=== PATIENT | male | born 1985 | race Caucasian/White ===

== ENCOUNTER 2018-05-29 09:34 | Day surgery (SDC) | payer OTHER, SELFPAY ==
[2018-05-26 09:57] VITALS: BMI 31.7
[2018-05-29] VITALS (11 sets, daily range): BP systolic 107–149; BP diastolic 43–91; PULSE 90–108; RESP 12–17; TEMP 36.1–36.8; O2SAT 93–100; BMI 31.6
--- NOTE | 2018-05-29 10:29 | SUR.PREOP ---
pt report has chronic numbness and tingling in left leg.
--- NOTE | 2018-05-29 11:16 | PM.PREOP ---
Pre-operative Note Interval Note History & Physical reviewed/Exam performed by Physician: Yes Changes to H&P: No
--- NOTE | 2018-05-29 11:35 | SUR.OPER ---
Prone on spine table, head in foam head support, padded chest and pelvic supports, gel pad at knees, lower legs supported by pillows; nipples, genitalia and toes free of pressure, arms secured on foam padded arm boards at <90 degrees abduction. Tape over blanket at thigh secured to table.
[2018-05-29] MEDS: LACTATED RINGERS 1,000 ML 42 ML IV (11:43)
--- NOTE | 2018-05-29 11:44 | SUR.PREOP ---
1144, pt. very difficult IV start, used vein finder to gain access to vein. pt.. tolerated well.
[2018-05-29] MEDS: CEFAZOLIN 2 GM/100 ML FROZ.PIGGY IV (12:05)
[2018-05-29] MEDS: SODIUM CHLORIDE 0.9% 1,000 ML, GENTAMICIN 80 MG IRR (12:40)
[2018-05-29] MEDS: BUPIVACAINE 0.25% (PF) 8 ML, fentaNYL 100 MCG INJ (12:44)
--- NOTE | 2018-05-29 13:17 | P.OP_ITS ---
Operative Date/Time/Diagnoses Date of procedure: 05/29/18 Time of procedure: 13:15 Pre-op diagnosis: L5-S1 disc herniation with radiculopathy Post-op diagnosis: same Procedure & Clinicians Procedure: Left-sided L5-S1 diskectomy Use of microscope Placement of epidural catheter Same procedure as scheduled: Yes Indications: [age] year old male with intractable pain from a lumbar disc herniation. They had failed conservative management and requested operative intervention. Risks and benefits of surgery were discussed and appropriate c onsents were obtained. Surgeon: Sumeet Thomas [employer] Merchandising Manager: Keyanna Medeiros Anesthesia Type: General Operative Notes Findings: None Closure Type: primary Specimen(s): none sent Estimated Blood Loss (mL): 10 Procedure in detail: Patient was brought to the operating room and intubated on the table. A time-out was performed. There were rolled over the well-padded prone position on the Manuel table. The back was prepped and draped in standard sterile fashion. Preoperative antibiotics were given. Using fluoroscopy, a 3 cm incision was made to the left of the midline at the L5-S1 level. We used Bovie to come down to and split the fascia. We then used the [employer] MaXcess dilators with fluoroscopy and then opened our retractors. The soft tissue was cleared off with Bovie, a marker was placed, an x-ray was taken to confirm positioning. We then brought in the microscope. A combination of high-speed bur and Kerrison were used to perform a left-sided hemilaminotomy and hemifacetectomy. We carefully retracted the dura and expose the disc. This was cleared with bipolar. A scalpel used to perform an annulotomy and a pituitary was used to perform the diskectomy. The ball probe was swept underneath the dura along the disc to make sure there were no further loose fragments. This was also placed into the disc and moved around to make sure there were no further loose fragments. Once everything was adequately decompressed, the wound was copiously irrigated. An epidural catheter was filled with 100 mcg of fentanyl and 8 mL of 0.25% Marcaine. The dura was carefully depressed under the laminotomy site and the catheter was advanced 6 cm cephalad. The retractor was removed and the fascia was closed. The epidural catheter was then injected without resistance and removed. Vancomycin powder was placed in the wound. Superficial and skin were closed. Sterile dressing was placed. The patient was then rolled over, transf erred to the stretcher, and brought to recovery room without complications. Complications: none Condition: stable Disposition: PACU Plan for aftercare: Outpatient. Start PT in 2 weeks.
[2018-05-29] MEDS: VANCOMYCIN 1,000 MG VIAL 1000 MG TOP (13:19)
--- NOTE | 2018-05-29 14:00 | DI.RAD.S_ITS ---
PROCEDURE: XR LUMBAR SPINE 2-3V INDICATIONS: L5-S1 MICRODISCECTOMY TECHNIQUE: 2 views of the lumbar spine were acquired. COMPARISON: None. FINDINGS: Bones: Digital acquisition imaging in preparation for microdiscectomy L5-S1 level. Port accesses documented dorsal to the posterior elements of L5-S1. Poor angled approach appears left-sided. Soft tissues: Overlying bowel gas pattern is normal. No suspicious soft tissue calcifications. IMPRESSION: Left sided L5-S1 port access approach for microdiscectomy. Dictated by: oJon Yeh M.D. on 06/01/2018 at 14:57 Approved by: Joon Yeh M.D. on 06/01/2018 at 14:58
[2018-05-29] MEDS: fentaNYL 100 MCG/2 ML INJ 50 MCG IV ×2 (14:06→14:12)
[2018-05-29] MEDS: OXYCODONE/ACETAMINOPHEN 5/325 TABLET 1 TAB PO (14:43)
== END 2018-05-29 15:18 | disposition home or self-care (01) ==
PROVIDERS: Visit Provider Orthopaedic Surgery
PROC: (CPT 63030; principal; 2018-05-29 12:15)
DX: M51.16 Intervertebral disc disorders with radiculopathy, lumbar region (principal); S39.012A Strain of muscle, fascia and tendon of lower back, initial encounter; X50.0XXA Overexertion from strenuous movement or load, initial encounter; Z72.0 Tobacco use
CPT/HCPCS: 63030; 72100; 76000; J0690; J1100; J2250; J2405; J2704; J3010

== ENCOUNTER → 2018-08-03 06:24 | Outpatient (CLI) | payer OTHER, SELFPAY ==
--- NOTE | 2018-08-03 | DI.MRI.S_ITS ---
PROCEDURE: MR LUMBAR SPINE WO/W CON INDICATIONS: Intervertebral disc disorders with radiculopathy TECHNIQUE: Noncontrast sagittal T1 spin echo and T2 fast spin echo, sagittal STIR, axial T1 and T2 fast spin echo through the lumbar spine. In cases with scoliosis, additional coronal T2 fast spin echo may be performed. After the administration of contrast, sagittal and axial T1 spin echo with fat saturation through the lumbar spine. COMPARISON: [facility], CR, XR LUMBAR SPINE 2-3V, 05/29/2018, 12:32. FINDINGS: Image quality: Limited by patient motion artifact. Alignment and curvature: There is normal bony alignment. Bones: Postsurgical changes compatible with prior left L5-S1 laminotomy noted. Benign, intraosseous hemangioma noted in the L3 vertebral body. Mild reactive endplate changes noted adjacent the L5-S1 disc. No acute vertebral body compression fractures. No suspicious marrow enhancement. Spinal cord: Conus medullaris terminates at the L1 level. Visualized spinal cord demonstrates normal signal, without suspicious enhancement. Paraspinous soft tissues: No paravertebral masses or abnormal enhancement. L1-L2: Normal appearance. L2-L3: Normal appearance. L3-L4: Normal appearance. L4-L5: Loss of the signal. Mild, diffuse disc bulge. Mild bilateral facet hypertrophy. Moderate narrowing of the central canal. Mild bilateral neural foraminal narrowing. No neural impingement. Focal intensities are noted in the posterior annulus compatible with the fissure. L5-S1: Loss of disc signal and slight loss of disc height. Mild diffuse disc bulge. Large left central disc extrusion. Extruded disc material impinges upon the traversing nerve roots of the cauda equina. Severe narrowing of the central canal secondary to extruded disc material. Mild bilateral facet hypertrophy. Mild right and mild to moderate left neural foraminal narrowing. IMPRESSION: 1. Postsurgical changes. 2. L4-L5 and L5-S1 degenerative disc disease. 3. L4-L5 and L5-S1 facet arthropathy. 4. Large left central L5-S1 disc extrusion. Extruded disc material impinges upon the traversing nerve roots of the cauda equina and compresses the traversing left S1 nerve root. 5. Severe L5-S1 central canal narrowing. Moderate L4-L5 central canal narrowing. 6. Mild right and mild/moderate left L5-S1 neural foraminal narrowing. Mild bilateral L4-L5 neural foraminal narrowing. 7. L4-L5 disc annulus fissure. Dictated by: Ynes Meadows MD, PhD on 08/03/2018 at 9:04 Approved by: Ynes Meadows MD, PhD on 08/03/2018 at 9:10
== END ==
PROVIDERS: Visit Provider Orthopaedic Surgery
DX: M51.16 Intervertebral disc disorders with radiculopathy, lumbar region (principal); M51.17 Intervertebral disc disorders with radiculopathy, lumbosacral region; M47.26 Other spondylosis with radiculopathy, lumbar region; M47.27 Other spondylosis with radiculopathy, lumbosacral region; M48.061 Spinal stenosis, lumbar region without neurogenic claudication; M48.07 Spinal stenosis, lumbosacral region
CPT/HCPCS: 72158

== ENCOUNTER → 2018-09-10 15:35 | Outpatient (CLI) | payer OTHER, SELFPAY ==
[2018-09-10 17:37] LABS: Add Manual Diff / Slide Review NO; Basophils Absolute Auto 100 /uL (0-100); Basophils Percent Auto 0.7 % (0-2); Eosinophils Absolute Auto 200 /uL (0-450); Eosinophils Percent Auto 2.5 % (2-4); Hematocrit 47.8 % (41-53); Hemoglobin 16.3 g/dL (13.5-17.5); Lymphocytes Absolute Auto 2900 /uL (1100-4500); Lymphocytes Percent Auto 36.3 % (25-40); Mean Corpuscular HGB Conc 34.2 % (30-36); Mean Corpuscular Hemoglobin 31.7 PG (26-34); Mean Corpuscular Volume 92.9 fL (80-100); Monocytes Absolute Auto 600 /uL (0-900); Monocytes Percent Auto 7.9 % (3-14); Neutrophils Absolute Auto 4200 /uL (1500-7000); Neutrophils Percent Auto 52.6 % (50-75); Platelet Count 201 X10^3/uL (150-400); Red Blood Cell Count 5.14 X10^6/uL (4.5-5.9); Red Cell Distribution Width 12.5 % (11.6-14.8)
== END ==
PROVIDERS: Visit Provider Physician Assistant Surgical
DX: M51.16 Intervertebral disc disorders with radiculopathy, lumbar region (principal); S39.012D Strain of muscle, fascia and tendon of lower back, subsequent encounter; Z01.818 Encounter for other preprocedural examination
CPT/HCPCS: 36415; 85025

== ENCOUNTER 2018-09-22 06:07 | Day surgery (SDC) | payer OTHER, SELFPAY ==
[2018-08-11 15:19] VITALS: BMI 32.2
[2018-09-22] VITALS (7 sets, daily range): BP systolic 100–143; BP diastolic 47–93; PULSE 91–112; RESP 10–22; TEMP 36.2–36.7; O2SAT 93–97; BMI 31.9
--- NOTE | 2018-09-22 | DI.RAD.S_ITS ---
PROCEDURE: XR LUMBAR SPINE 2-3V INDICATIONS: L5-S1 LAMI TECHNIQUE: 2 views of the lumbar spine were acquired. COMPARISON: [facility], CR, XR LUMBAR SPINE 2-3V, 05/29/2018, 12:32. FINDINGS: Intraoperative images demonstrate surgical probe project over the posterior elements on the left localizing the L5-S1 disc interspace. IMPRESSION: Fluoroscopic images demonstrating surgical probe over the posterior elements at the L5-S1 level. Dictated by: Jeffry BARON Interpreted: Joon Yeh MD on 09/22/2018 at 9:41 Approved by: Joon Yeh M.D. on 09/22/2018 at 12:14
[2018-09-22] MEDS: LACTATED RINGERS 1,000 ML 42 ML IV ×2 (07:23→08:36)
--- NOTE | 2018-09-22 07:26 | PM.PREOP ---
Pre-operative Note Interval Note History & Physical reviewed/Exam performed by Physician: Yes Changes to H&P: No
--- NOTE | 2018-09-22 07:29 | P.OP_ITS ---
Operative Date/Time/Diagnoses Date of procedure: 09/22/18 Time of procedure: 09:50 Pre-op diagnosis: Recurrent lumbar disc herniation with radiculopathy Post-op diagnosis: same Procedure & Clinicians Procedure: Revision left L5-S1 diskectomy Use of microscope Placement of epidural catheter Same procedure as scheduled: Yes Indications: [age] year old male with intractable pain from recurrent large disc herniation. They had failed conservative management and requested operative intervention. Risks and benefits of surgery were discussed and appropriate consents were obtained. Surgeon: Sumeet Thmoas Electrical Controls Designer: Lien Adhikari Anesthesia Type: General Operative Notes Findings: None Closure Type: primary Specimen(s): none sent Estimated Blood Loss (mL): 15 Procedure in detail: Patient was brought to the operating room and intubated on the table. A time-out was performed. There were rolled over the well-padded prone position on the Manuel table. The back was prepped and draped in standard sterile fashion. Preoperative antibiotics were given. Using fluoroscopy, a 3 cm incision was made to the well-marked left of the midline at the L5-S1 level utilizing his previous scar. We used Bovie to come down to and split the fascia. We then used the [employer] MaXcess dilators with fluoroscopy and then opened our retractors. The soft tissue and scar was cleared off with Bovie from lateral to medial until we came to his previous laminotomy, a marker was placed, an x-ray was taken to confirm positioning. We then brought in the microscope. A combination of high-speed bur and Kerrison were used to perform a revision left-sided hemilaminotomy and hemifacetectomy. We only took approximately 1 extra mm of bone from his previous laminotomy. We then had to do extensive dissection to try to isolate the dura. We finally visualized and freed up the traversing nerve root. We then worked underneath it and around it to remove more of the scar tissue until week ago well down past the level of the disc and up proximally to our laminotomy. We then worked underneath with the right angle ball probe and swept back and forth. This was densely adherent to the disc space but we were finally able to free up the nerve root and worked medially until a retractor was passed the midline. The did not appear to be much of the herniated disc above the level of the disc but there was still a moderate portion at the level of the disc. An annulotomy was performed and a pituitary was used to remove the disc fragments. However this was still hung up distally. We kept working and found a large extruded fragment that had worked mostly distally. This was removed with the pituitary. It was approximately 8 by 22 mm in size. We then were able to sweep the ball probe back and forth and there was no further tension on the nerve root and no more pressure from the disc tissue. There were no fragments in the disc space itself. Once everything was adequately decompressed, the wound was copiously irrigated. An epidural catheter was filled with 100 mcg of fentanyl and 8 mL of 0.25% Marcaine. The dura was carefully depressed under the laminotomy site and the catheter was advanced 6 cm cephalad. We then placed 40 mg of Depo-Medrol on top of the irritated root as this had been extensively manipulated and retracted throughout the surgery while trying to free it up from the scar tissue. The retractor was removed and the fascia was closed. The epidural catheter was then injected without resistance and removed. Vancomycin powder was placed in the wound. Superficial and skin were closed. Sterile dressing was placed. The patient was then rolled over, transferred to the stretcher, and brought to recovery room without complications. Complications: none Condition: stable Disposition: PACU Plan for aftercare: Outpatient. Begin PT in 2 weeks.
[2018-09-22] MEDS: MIDAZOLAM 2 MG/2 ML VIAL IV (07:34)
[2018-09-22] MEDS: CEFAZOLIN 2 GM/100 ML FROZ.PIGGY IV (08:06)
[2018-09-22] MEDS: SODIUM CHLORIDE 0.9% 1,000 ML, GENTAMICIN 80 MG IRR (08:39)
[2018-09-22] MEDS: methylPREDNISolone acet DEPO 40 MG/ML VIAL IM (09:23)
[2018-09-22] MEDS: BUPIVACAINE 0.25% (PF) 8 ML, fentaNYL 100 MCG INJ (09:47)
[2018-09-22] MEDS: fentaNYL 100 MCG/2 ML INJ 50 MCG IV (10:34)
[2018-09-22] MEDS: OXYCODONE/ACETAMINOPHEN 5/325 TABLET 1 TAB PO ×2 (10:34→11:01)
--- NOTE | 2018-09-22 10:38 | SUR.PHASEI ---
1034 Tolerating pain level well, rx given in anticipation of increasing pain and travel home. Denies anything more to improve comfort level. Skin warm and dry, Resp even and regular. Turns freely, positive strength, discussed log rolling. tolerating PO well.
--- NOTE | 2018-09-22 11:02 | SUR.PHASEI ---
1100 Report to Salome Yadav RN. Patient calm, VSS, states that he's is tolerating his pain level; Good strength and motion in extremities. No nausea.
--- NOTE | 2018-09-22 12:44 | SUR.PHASEII ---
Called and relayed information for future surgeries -- he was a difficult intubation and that they used the glidescope. Told her that it would be good information to pass along to future anesthesiologists. States that Dominik reported that his throat was more sore than with the previous surgery. Suggested ice chips and throat lozenges. Ela appreciated the information.
== END 2018-09-22 11:20 | disposition home or self-care (01) ==
PROVIDERS: PCP Family Medicine; Visit Provider Orthopaedic Surgery
PROC: (CPT 63042; principal; 2018-09-22 07:45)
DX: M51.16 Intervertebral disc disorders with radiculopathy, lumbar region (principal); S39.012A Strain of muscle, fascia and tendon of lower back, initial encounter
CPT/HCPCS: 63042; 72100; 76000; J0330; J0690; J1030; J1100; J2250; J2405; J2704; J3010

== ENCOUNTER → 2019-01-05 12:37 | Outpatient (CLI) | payer OTHER, SELFPAY ==
--- NOTE | 2019-01-05 | DI.MRI.S_ITS ---
PROCEDURE: MR LUMBAR SPINE WO/W CON INDICATIONS: Intervertebral disc disorders with radiculopathy, TECHNIQUE: Noncontrast sagittal T1 spin echo and T2 fast spin echo, sagittal STIR, axial T1 and T2 fast spin echo through the lumbar spine. In cases with scoliosis, additional coronal T2 fast spin echo may be performed. After the administration of contrast, sagittal and axial T1 spin echo with fat saturation through the lumbar spine. COMPARISON: [facility], CR, XR LUMBAR SPINE 2-3V, 09/22/2018, 8:31. [facility], CR, XR LUMBAR SPINE 2-3V, 05/29/2018, 12:32. [facility], MR, MR LUMBAR SPINE WO/W CON, 08/03/2018, 6:43. FINDINGS: Image quality: Excellent. Alignment and curvature: There is normal bony alignment. Marrow: Marrow is of normal overall signal. Scattered foci are seen, which are hyperintense on T1-weighted and T2-weighted imaging, which are most consistent with benign vertebral body hemangiomas. The most prominent of these can be seen within the posterior right L3 level. No acute vertebral body compression fractures. No suspicious marrow enhancement. Spinal cord: Conus medullaris terminates at the L1 level. Visualized spinal cord demonstrates normal signal, without suspicious enhancement. Paraspinous soft tissues: No paravertebral masses or abnormal enhancement. Expected amount of enhancement can be seen within the postoperative bed along the left aspect of L5-S1. T12-L1: Normal appearance. L1-L2: Normal appearance. L2-L3: No significant abnormality is seen. L3-L4: The disc height and disk signal are well-preserved. Mild to moderate disc bulge is seen. [id number] bilateral neural foraminal narrowing can be seen. Mild generalized disc bulge is seen. [id number] neural foraminal narrowing can be seen. When comparison is made with the prior examination, these findings are similar. L4-L5: The disc height is well-preserved. Loss of disc signal is seen at this level. Moderate disc bulge is seen, with a central disc protrusion. There is associated annular fissure seen posteriorly. Moderate bilateral neural foraminal narrowing is seen, right worse than left. Mild to moderate central canal narrowing is seen. When comparison is made with the prior examination, these findings are similar. L5-S1: Interval postoperative change is seen, with left hemilaminectomy. An expected amount of edema and enhancement can be seen within the postoperative bed. There is a left paracentral disc extrusion, with associated mass effect, particularly upon the transiting left L1 nerve root. Moderate central canal narrowing is seen. There is mild to moderate right-sided and moderate left-sided neural foraminal narrowing seen. The disc extrusion is improved compared to the prior examination. IMPRESSION: L5-S1 postoperative change, with improvement in the disc extrusion. A moderate disc extrusion remains, however, with associated mass effect upon the transiting left L5 nerve root. Dictated by: Pierre Hartman M.D. on 01/05/2019 at 13:42 Approved by: Pierre Hartman M.D. on 01/05/2019 at 13:50
== END ==
PROVIDERS: PCP Family Medicine; Visit Provider Orthopaedic Surgery
DX: M51.16 Intervertebral disc disorders with radiculopathy, lumbar region (principal); M51.17 Intervertebral disc disorders with radiculopathy, lumbosacral region
CPT/HCPCS: 72158

== ENCOUNTER 2019-02-11 00:14 | Emergency (ER) | payer OTHER, SELFPAY ==
[2019-02-11 00:24] VITALS: BP 135/80; PULSE 85; RESP 16; TEMP 36.6; O2SAT 100; BMI 31.0
--- NOTE | 2019-02-11 00:42 | PC.NURSE ---
Pt states that for approx 1 year when he is lying down he hears crackles. Pt denies pain or SOB,no swelling in lower extremities.
--- NOTE | 2019-02-11 01:06 | ED_ITS ---
HPI - SOB/Dyspnea General Chief Complaint: Shortness of Breath/Dyspnea Stated Complaint: crackling when I breath Time Seen by Provider: 02/11/19 00:50 Source: patient Mode of arrival: Family Vehicle Limitations: no limitations History of Present Illness HPI Narrative: The patient is a 33-year-old male who presents with loud breathing. He says that every time he lays down or reclines for a year he feels like he has crackles in his lungs. Tonight he felt like it was very loud. He denies any significant shortness of breath with exertion no chest pain no lower extremity edema. He says that he has an albuterol inhaler he uses it daily minute does not help with his breathing. He says he only notices it on inspiration not expiration. He denies any fever productive cough. He had no problems earlier in the day. He just noticed that was significantly louder at home tonight he went on the Internet decided to come to the ED for evaluation. He says now that he is here he no longer hears his breathing. Exacerbating factors: lying flat and inspiration Related Data Previous Rx's Medication Instructions Recorded hydroxyzine pamoate [Vistaril] 25 mg PO Q4HR PRN #10 cap 09/22/18 oxycodone-acetaminophen [Percocet] See Rx Instructions .ROUTE 09/22/18 .COMPLEX PRN #20 tab Allergies Allergy/AdvReac Type Severity Reaction Status Date / Time No Known Drug Allergies Allergy Verified 09/22/18 07:36 Review of Systems Review of Systems Narrative: GENERAL: Denies chills, fatigue, malaise, fever, sweats, travel HEENT: Denies sinus pain, ear pain, sore throat, difficulty swallowing, neck pain RESPIRATORY: See HPI CARDIOVASCULAR: Denies chest pain, palpitations, orthopnea, edema GASTROINTESTINAL: Denies nausea, vomiting, abdominal pain, diarrhea, constipation, melena. : Denies dysuria, frequency, incontinence, hematuria, urinary retention, flank pain. MUSCULOSKELETAL: Denies weakness, joint pain, or bony pain SKIN: No rash, no erythema, no pruritus NEUROLOGIC: Denies weakness, dizziness, headache, numbness, change in speech, confusion PSYCHIATRIC: No concerning psychosocial issues. 12 point review of systems is negative except for those stated above and HPI Patient History Medical History Back pain (Acute) Surgical History Hx of tonsillectomy (Acute) Social History household members: spouse Smoking Status: Former smoker alcohol intake: current Substance Use Type: does not use Exam Initial Vital Signs Initial Vital Signs: Vital Signs Temperature 97.8 F 02/11/19 00:24 Pulse Rate 85 02/11/19 00:24 Respiratory Rate 16 02/11/19 00:24 Blood Pressure 135/80 02/11/19 00:24 Pulse Oximetry 100 02/11/19 00:24 GENERAL: Well-appearing, well-nourished and in no acute distress. HEENT: Head atraumatic,EOMI, pupils reactive, face symmetric, moist mucous membranes CARDIOVASCULAR: Regular rate and rhythm without murmurs, rubs or gallops. RESPIRATORY: Breath sounds equal bilaterally, no wheezes rales or rhonchi. ABDOMEN: Soft, nontender. Normoactive bowel sounds all 4 quadrants. No guar ding or rebound. EXTREMITIES: Normal range of motion, no clubbing or edema. Neurovascularly intact NEUROLOGICAL: Alert and oriented x4.Normal gait and speech. Cranial nerves II through XII grossly intact. SKIN: Warm, dry, no laceration, no petechiae, no rashes or lesions. Course Orders Ordered: ED Orders 02/11/19 01:22 XR chest 2V Stat Vital Signs Vital signs: Vital Signs - 8 hr 02/11/19 00:24 02/11/19 01:53 Temperature 97.8 F Pulse Rate 85 86 Respiratory Rate 16 16 Blood Pressure 135/80 134/80 Pulse Oximetry 100 98 MDM - SOB/Dyspnea Imaging Data Chest x-ray: Attestation: I personally reviewed and interpreted this imaging study as follows: My impression: No acute cardiopulmonary process MDM Narrative Medical decision making narrative: Patient's lungs are clear he is in no respiratory distress. X-ray is clear. This has been ongoing for about a year. I do recommend outpatient testing and follow-up. Including echocardiogram an official testing for asthma. I did offer blood work today for patient however he declined. His symptoms have completely resolved now that he is in the ED. I have considered several life threatening etiologies for the patients loud breathing such as asthma, COPD, CHF. I discussed all findings with the patient, Education has been performed regarding treatment plan, diagnosis, warning signs and symptoms and all concerns have been addressed. Verbally agree with and understood all of the above. Discharge Plan Departure Patient Disposition: Home Clinical Impression: Asthma Qualifiers: Asthma severity: moderate Asthma persistence: persistent Asthma complication type: uncomplicated Qualified Code(s): J45.40 - Moderate persistent asthma, uncomplicated Discharge Date/Time: 02/11/19 01:53 Instructions: DI for Asthma -- Adult Activity Restrictions/Additional Instructions: *You have been diagnosed with asthma *What to do: I do recommend that you have official asthma testing. All along with evaluation of your heart and possible echocardiogram. Both of these can be done with your PCP *Continue to take medications as directed Albuterol inhaler 1-2 puffs only if needed for shortness of breath or wheezing *Follow up with your primary care provider in 2-3 days *Return to ER if you should have increasing shortness of breath, difficulty breathing, chest pain or any new, worsening or concerning symptoms Prescriptions: No Action oxycodone-acetaminophen [Percocet] 5-325 mg tablet See Rx Instructions .ROUTE .COMPLEX PRN (Reason: pain) Qty: 20 RF: 0 hydroxyzine pamoate [Vistaril] 25 mg capsule 25 mg PO Q4HR PRN (Reason: spasms) Qty: 10 RF: 0 Referrals: [facility] [Provider Group] Milena Catalan MD [Primary Care Provider] -
--- NOTE | 2019-02-11 01:22 | DI.RAD.S_ITS ---
PROCEDURE: XR CHEST 2V INDICATIONS: shortness of breath, crackle when breathing while laying down TECHNIQUE: 2 views of the chest were acquired. COMPARISON: None. FINDINGS: Surgical changes and devices: None. Lungs and pleura: Lungs are clear. No pleural effusions or pneumothorax. Mediastinum: Mediastinal contours are normal. Heart size is normal. Bones and chest wall: No suspicious bony abnormalities. Soft tissues appear unremarkable. IMPRESSION: No evidence acute pulmonary process. Dictated by: Don Borges M.D. on 02/11/2019 at 8:28 Approved by: Don Borges M.D. on 02/11/2019 at 8:28
[2019-02-11 01:53] VITALS: BP 134/80; PULSE 86; RESP 16; O2SAT 98
== END 2019-02-11 01:53 | disposition home or self-care (01) ==
PROVIDERS: Emergency Provider Emergency Medicine; PCP Family Medicine
DX: J45.40 Moderate persistent asthma, uncomplicated (principal)
CPT/HCPCS: 71046; 99283

== ENCOUNTER → 2019-08-03 15:51 | Outpatient (CLI) | payer OTHER, SELFPAY ==
[2019-08-04 03:10] LABS: COVID19 Sendout Not Detected (Not Detect)
== END ==
PROVIDERS: PCP Family Medicine; Visit Provider Registered Nurse
DX: Z11.59 Encounter for screening for other viral diseases (principal)
CPT/HCPCS: 87635

== ENCOUNTER → 2019-12-21 15:15 | Outpatient (CLI) | payer OTHER, SELFPAY ==
[2019-12-21 16:01] LABS: C-Reactive Protein Quant < 0.5 mg/dL (<1.0)
[2019-12-21 16:06] LABS: Erythrocyte Sedimentation Rate 1 MM/HR (0-15)
[2019-12-21 16:27] LABS: TSH w/ Reflex to FT4 2.35 uIU/mL (0.47-4.68)
[2019-12-22 17:21] LABS: Tissue Transglutaminase IgA <2 U/mL (0-3); Tissue Transglutaminase IgG 44 U/mL (0-5)
== END ==
PROVIDERS: PCP Family Medicine; Referring Provider Family Medicine; Visit Provider Family Medicine
DX: K52.9 Noninfective gastroenteritis and colitis, unspecified (principal)
CPT/HCPCS: 36415; 83516; 84443; 85651; 86140

== ENCOUNTER 2020-07-07 13:50 | Emergency (ER) | payer OTHER, SELFPAY ==
[2020-07-07 14:06] VITALS: BP 131/76; PULSE 83; RESP 12; TEMP 36.9; O2SAT 99; BMI 30.3
--- NOTE | 2020-07-07 15:52 | DI.RAD.S_ITS ---
PROCEDURE: XR LUMBAR SPINE 2-3V INDICATIONS: R lumbar pain, no trauma, hx of herniated disc TECHNIQUE: 3 views of the lumbar spine were acquired. COMPARISON: [facility], CR, XR LUMBAR SPINE 2 OR 3 VIEWS, 04/16/2018, 15:04. [facility], CR, XR LUMBAR SPINE 2-3V, 05/29/2018, 12:32. [facility], CR, XR LUMBAR SPINE 2 OR 3 VIEWS, 07/04/2020, 11:17. [facility], CR, XR LUMBAR SPINE 2-3V, 09/22/2018, 8:31. FINDINGS: Bones: No fracture. Straightening of the normal lordotic curvature. Multilevel degenerative endplate sclerosis and spurring. Diffuse facet arthropathy. Moderate narrowing of the L5-S1 disc space. Mild narrowing of the L4-L5 disc space. This is unchanged since 07/04/20 Soft tissues: Overlying bowel gas pattern is normal. No suspicious soft tissue calcifications. IMPRESSION: Mild lower lumbar spondylosis and facet arthropathy, slight interval progression compared to 04/16/18. Dictated by: Pineda Palacios M.D. on 07/07/2020 at 16:14 Approved by: Pineda Palacios M.D. on 07/07/2020 at 16:16
[2020-07-07] MEDS: PANTOPRAZOLE 20 MG TABLET PO (16:03)
[2020-07-07] MEDS: predniSONE 20 MG TABLET 40 MG PO (16:03)
[2020-07-07 16:31] VITALS: BP 121/86; PULSE 66; O2SAT 100
[2020-07-07 16:32] VITALS: BP 121/71; PULSE 66; RESP 16; O2SAT 99
--- NOTE | 2020-07-07 16:44 | ED_ITS ---
HPI - Back Pain/Injury <LEATHA Cloud - Last Filed: 07/07/20 21:16> General Chief Complaint: Back Pain/Injury Stated Complaint: Back injury while at work Time Seen by Provider: 07/07/20 15:17 Source: patient Mode of arrival: Ambulatory Limitations: no limitations History of Present Illness HPI Narrative: This is a 34-year-old male, occasional smoker, who has past medical history significant for herniated disc and diskectomy twice by Dr. Thomas presents to ED with chief complain of lumbar discomfort worsening in right-side with radiating discomfort to right buttock since 06/24/2020. 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 after the training evolution and pudding the gear off, he felt pain on right low back. He denies sudden episode of pain from certain movements. He reports pain increases with slight leaning forward position and bending forward. Pain radiates to up and down to of lumbar region and describes as sharp and constant stiffness on the back. Patient contacted PCP Dr. Morgan and was prescribed Flexeril and has been taking Naprosyn which subsided pain but now he feels some numbness to inner groin region left side. Patient denies fever, chills, nausea, vomiting, rash on his back, incontinence for stools or bladder. Patient reports recent normal state of health except back pain. Denies IV drug use history. Patient is here after he was directed to complete documentation for work comp/modified duty and this could not be done by PCP. Patient contacted [facility] orthopedist since he used to see Dr. Thomas and is waiting to be evaluated by Dr. Melton. Related Data Home Medications Medication Instructions Recorded Confirmed acetaminophen 325 mg tablet 650 mg PO Q6H PRN 10/14/19 12/21/19 naproxen sodium 220 mg tablet 220 mg PO Q12H 10/14/19 12/21/19 Previous Rx's Medication Instructions Recorded terbinafine HCl 250 mg tablet 250 mg PO DAILY #90 tab 12/21/19 diclofenac sodium 1 % gel topical 2 g TOPICAL QID #1 ea 05/16/20 kit trazodone 50 mg tablet 50 mg PO BEDTIME PRN #30 tab 05/16/20 ciclopirox 8 % topical solution 1 applic TOPICAL BEDTIME 28 Days 06/07/20 #6.6 ml cyclobenzaprine 10 mg tablet See Rx Instructions PO TID PRN #14 06/26/20 tab prednisone 40 mg PO DAILY #8 tab 07/07/20 Allergies Allergy/AdvReac Type Severity Reaction Status Date / Time No Known Drug Allergies Allergy Verified 07/07/20 14:12 Review of Systems <LEATHA Cloud - Last Filed: 07/07/20 21:16> Review of Systems Narrative: General: Denies fever, chills, fatigue, malaise, sweats. Respiratory: Denies dyspnea, cough, wheezing, hemoptysis, sputum. Cardiovascular: Denies chest pain, palpitations, orthopnea, edema. Gastrointestinal: Denies nausea, vomiting, abdominal pain, diarrhea, constipation, melena. : Denies dysuria, frequency, incontinence, hematuria, urinary retention. Musculoskeletal: See HPI Skin: Denies rash, skin lesions, or other. Patient History <LEATHA Cloud - Last Filed: 07/07/20 21:16> Medical History Back pain Herniated lumbar intervertebral disc Surgical History Hx of tonsillectomy S/P diskectomy Social History household members: spouse Smoking Status: Former smoker alcohol intake: current substance use type: does not use Smoking Status: Former smoker Substance Use Type: does not use Exam <LEATHA Cloud - Last Filed: 07/07/20 21:16> Narrative Exam Narrative: GEN: Alert, oriented x 3, well appearing and nourished, and in no acute distress. Head: Normal cephalic, atraumatic. No scalp or temporal tenderness, palpable mass or rash. EYES: Pupils are equal, round, and reactive to light and accommodation. Extraocular muscles are intact bilaterally. There is no subconjunctival hemorrhage, exudate and sclera non-icteric. ENT: Hearing grossly intact. Airway patent. Neck: Trachea in midline. No JVD, non-tender without lymphadenopathy. No masses or thyroid megaly. Supple, non-tender and no meningeal signs. CARDIAC: Normal regular rate and rhythm without murmurs, gallops, or rubs. No chest wall tenderness. No peripheral edema, cyanosis or pallor. Capillary refill is less than 2 seconds. RESPIRATORY: Lungs are clear to auscultate bilaterally. No cough, wheezes, rales, or rhonchi. No stridor, respiratory distress, increase work of breathing, or accessary muscle used. ABD: Abdomen soft, nontender and non-distended. No guarding or rebound tenderness to palpate. Bowel sounds are normal in all 4 quadrants. There is no palpable masses or organomegaly. EXT: Full painless ROM of all extremities with no loss of sensation, strength, effusion or edema. SKIN: Warm, dry, normal color for patient. No erythema, lesions or rash over visible areas. BACK: No deformity or crepitance. Right lumbar paraspinous tenderness. Positive leg raise on right leg. 2+ patella reflex. No flank tenderness. NEUROLOGICAL: Alert and oriented to place, time and person. Sensation and motor function intact bilaterally. No facial droops, dysphasia. PSYCHIATRIC: Good judgement and reason, without hallucinations, abnormal affect or abnormal behaviors during the examination. Initial Vital Signs Initial Vital Signs: Vital Signs Temperature 98.4 F 07/07/20 14:06 Pulse Rate 83 07/07/20 14:06 Respiratory Rate 12 07/07/20 14:06 Blood Pressure 131/76 07/07/20 14:06 Pulse Oximetry 99 07/07/20 14:06 <Adrián Blandon DO - Last Filed: 07/08/20 07:36> Initial Vital Signs Initial Vital Signs: Vital Signs Temperature 98.4 F 07/07/20 14:06 Pulse Rate 83 07/07/20 14:06 Respiratory Rate 12 07/07/20 14:06 Blood Pressure 131/76 07/07/20 14:06 Pulse Oximetry 99 07/07/20 14:06 Scores <LEATHA Cloud - Last Filed: 07/07/20 21:16> GCS Dumont coma scale eye opening: Spontaneous May coma scale verbal response: Orientated May coma scale motor response: Obey commands May coma scale total score: 15 Course <LEATHA Cloud - Last Filed: 07/07/20 21:16> Orders Ordered: Discontinued Medications Pantoprazole Sodium (Pantoprazole 20 Mg Tablet) 20 mg PO NOW ONE Stop: 07/07/20 15:53 Last Admin: 07/07/20 16:03 Dose: 20 mg Documented by: ABEL Prednisone (Prednisone 20 Mg Tablet) 40 mg PO NOW ONE Stop: 07/07/20 15:53 Last Admin: 07/07/20 16:03 Dose: 40 mg Documented by: ABEL Vital Signs Vital signs: Vital Signs - 8 hr 07/07/20 14:06 07/07/20 16:31 07/07/20 16:32 Temperature 98.4 F Pulse Rate 83 66 66 Respiratory Rate 12 16 Blood Pressure 131/76 121/86 121/71 Pulse Oximetry 99 100 99 <Adrián Blandon DO - Last Filed: 07/08/20 07:36> Orders Ordered: Discontinued Medications Pantoprazole Sodium (Pantoprazole 20 Mg Tablet) 20 mg PO NOW ONE Stop: 07/07/20 15:53 Last Admin: 07/07/20 16:03 Dose: 20 mg Documented by: ABEL Prednisone (Prednisone 20 Mg Tablet) 40 mg PO NOW ONE Stop: 07/07/20 15:53 Last Admin: 07/07/20 16:03 Dose: 40 mg Documented by: ABEL Vital Signs Vital signs: Vital Signs - 8 hr 07/07/20 14:06 07/07/20 16:31 07/07/20 16:32 Temperature 98.4 F Pulse Rate 83 66 66 Respiratory Rate 12 16 Blood Pressure 131/76 121/86 121/71 Pulse Oximetry 99 100 99 MDM - Back Pain/Injury <LEATHA Cloud - Last Filed: 07/07/20 21:16> Differential Diagnosis Differential diagnosis: Likely lumbar radiculopathy, sciatica, strain of lumbar region, discitis and other (herniated disc) Medical Records Attestation: I reviewed the patient's medical records. Imaging Data XR-Lumbar: Radiologist's Impression: [address] [id number] ReportSigned Patient: Dominik Dover#: [id number]: [id number]:[id number]/Sex: 34 / MDate of Service: 07/07/20Loc: EDAccession Number: [id number] Procedure: XR lumbar spine 2-3V Ordering Provider: Wu Joseph PROCEDURE: XR LUMBAR SPINE 2-3V INDICATIONS: R lumbar pain, no trauma, hx of herniated disc TECHNIQUE: 3 views of the lumbar spine were acquired. COMPARISON: [facility], CR, XR LUMBAR SPINE 2 OR 3 VIEWS, 04/16/2018, 15:04. [facility], CR, XR LUMBAR SPINE 2-3V, 05/29/2018, 12:32. [facility] [place], CR, XR LUMBAR SPINE 2 OR 3 VIEWS, 07/04/2020, 11:17. [facility], CR, XR LUMBAR SPINE 2-3V, 09/22/2018, 8:31. FINDINGS: Bones: No fracture. Straightening of the normal lordotic curvature. Multilevel degenerative endplate sclerosis and spurring. Diffuse facet arthropathy. Moder ate narrowing of the L5-S1 disc space. Mild narrowing of the L4-L5 disc space. This is unchanged since 07/04/20 Soft tissues: Overlying bowel gas pattern is normal. No suspicious soft tissue calcifications. IMPRESSION: Mild lower lumbar spondylosis and facet arthropathy, slight interval progression compared to 04/16/18. Dictated by: Pineda Palacios M.D. on 07/07/2020 at 16:14 Approved by: Pineda Palacios M.D. on 07/07/2020 at 16:16 MDM Narrative Medical decision making narrative: This is a 34 year male who works as a [employer] firefighter type one presents to ED with chief complain of near 2 week duration of lower lumbar pain worse on the right side and now he feels some numbness to right inner groin area. Patient does not endorses constitutional symptoms. No history of IVDU. Patient denies incontinence problem. Patient had 2 surgeries for low back pain and herniated disc followed with diskectomy on left lumbar region by Dr. Thomas. Physical exam appreciated tenderness to palpate in para spinous on right lumbar. Patient has intact sensation in bilateral lower leg with full strength bilaterally in lower extremities. Intact 2+ patella reflex. In shared decision making, patient is willing to try a short burst course of steroid for 5 days. Patient advised to use [id number] omeprazole if concurrently uses NSAIDS and also to take Tylenol. Patient declined lidocaine patch since this has not been helpful in the past but will continue to use icy leather roller. Presented with work modify form and [employer] documentation which has been completed during this visit advised to follow-up with does needed [facility] otherwise to follow-up with primary care physician and Dr. Melton as scheduled for further evaluation and treatment possibly including as imaging test if patient's symptoms not improving. He verbalized understanding in agreement with the treatment plan. Discharge Plan Departure Patient Disposition: Home Clinical Impression: Lumbar strain Qualifiers: Encounter type: initial encounter Qualified Code(s): S39.012A - Strain of muscle, fascia and tendon of lower back, initial encounter Instructions: DI for Back Strain or Sprain Activity Restrictions/Additional Instructions: You have been diagnosed with [lumbar strain, pain. Lumbar x-ray test does not show acute findings but mild progression of lower lumbar spondylosis and facet arthropathy when compared with 04/06/18]. What to do: *Take your medications as directed. Please take prednisone 40 mg daily for next 4 days. Try to take this medication during early day. If you decide to take Aleve with this medication, please take [id number] omeprazole to protect her stomach. You can add Tylenol 650-1000 mg up to 3 times a day. Continue to use icy Hot on your back. *Follow up with your primary care provider in 2-3 days, call for an appointment. Please follow-up with does not made it [facility] for further evaluation and when you could return to work for full duty. Also follow with Dr. Melton as you scheduled for further assessment and treatment. Let them know you were seen in the ED and that we asked you to be seen in follow up. *Return to ED if you have any new, worsening, or concerning symptoms, such as [fever, chest pain, breathing difficulty, unable to tolerate fluids, increasing numbness/weakness/incontinence, or any acute concerns]. Prescriptions: New prednisone 20 mg tablet 40 mg PO DAILY Qty: 8 RF: 0 No Action acetaminophen [Tylenol] 325 mg tablet 650 mg PO Q6H PRNRF: 0 naproxen sodium [Aleve] 220 mg tablet 220 mg PO Q12H RF: 0 terbinafine HCl 250 mg tablet 250 mg PO DAILY Qty: 90 RF: 0 Diclo Gel 1 % kit 2 g topical QID Qty: 1 RF: 3 trazodone 50 mg tablet 50 mg PO BEDTIME PRN (Reason: sleep) Qty: 30 RF: 0 ciclopirox 8 % solution 1 applic topical BEDTIME 28 Days Qty: 6.6 RF: 3 cyclobenzaprine 10 mg tablet See Rx Instructions PO TID PRN (Reason: muscle spasm) Qty: 14 RF: 0 Referrals: Emeterio Morgan MD [Primary Care Provider] - <Adrián Blandon, - Last Filed: 07/08/20 07:36> [facility] Dr Blandon Co-Sign Statement: I was available for consultation during this patient's emergency department visit. This chart is signed by myself for administrative purposes only. I did not have direct contact with this patient during this visit. They were seen independently by the APC.
== END 2020-07-07 17:04 | disposition home or self-care (01) ==
PROVIDERS: Emergency Provider Nurse Practitioner Family; PCP Family Medicine
DX: S39.012A Strain of muscle, fascia and tendon of lower back, initial encounter (principal)
CPT/HCPCS: 72100; 99283

== ENCOUNTER → 2020-07-19 17:21 | Outpatient (CLI) | payer OTHER, SELFPAY ==
--- NOTE | 2020-07-19 | DI.MRI.S_ITS ---
PROCEDURE: MR LUMBAR SPINE WO CON INDICATIONS: INTERVERTRABRAL DISC DISORDERS WITH RADICULOPATHY TECHNIQUE: Noncontrast sagittal T1 spin echo and T2 fast echo, sagittal STIR, axial T1 and T2 fast spin echo through the lumbar spine. In cases with scoliosis, additional coronal T2 fast spin echo may be performed. COMPARISON: None. FINDINGS: Image quality: Excellent. Alignment and Curvature: There is normal bony alignment. Bone Marrow: Marrow is of normal overall signal. Increased T1 and T2 signal at L3 is present most consistent with hemangioma. Reactive endplate changes are noted at L5-S1 with Schmorl's nodes. No acute vertebral body compression fractures. Spinal Cord: Conus medullaris terminates at the L1 level. Visualized cord demonstrates normal signal. 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 Paraspinous Soft Tissues: No paravertebral masses. Discs: Moderate to severe desiccation is present L4-5, L5-S1. L1-L2: Mild disc bulge with minimal canal narrowing. Epidural lipomatosis is present as well as facet and ligamentum flavum hypertrophy. No foraminal narrowing. L2-L3: Mild disc bulge with mild canal narrowing. Mild epidural lipomatosis. No foraminal narrowing. Facet and ligamentum flavum hypertrophy are present. L3-L4: Mild disc bulge with mild canal narrowing. Epidural lipomatosis is present. Facet and ligamentum flavum hypertrophy are present. L4-L5: Mild disc bulge with moderate canal narrowing. Increased T2 signal present posteriorly most suggestive of annular fissure. Epidural lipomatosis is present. Facet and ligamentum flavum hypertrophy are noted. Minimal bilateral foraminal narrowing. L5-S1: Mild disc bulge with asymmetric left posterior paracentral protrusion with small extruded fragment. There is compromise of the exiting nerve root as well as the lateral recess. Facet and ligamentum flavum hypertrophy are present. Minimal foraminal narrowing. IMPRESSION: 1. Disc bulges most notable at L4-5 and L5-S1, with the latter demonstrating asymmetric protrusion with small extrusion causing compromise of the exiting left nerve root as well as lateral recess. 2. Multilevel canal narrowing secondary to epidural lipomatosis, disc bulge with contributing effect of underlying congenital stenosis. Dictated by: Ludivina España M.D. on 07/20/2020 at 14:23 Approved by: Ludivina España M.D. on 07/20/2020 at 14:37
== END ==
PROVIDERS: PCP Family Medicine; Referring Provider Orthopaedic Surgery Orthopaedic Surgery of the Spine; Visit Provider Orthopaedic Surgery Orthopaedic Surgery of the Spine
DX: M51.16 Intervertebral disc disorders with radiculopathy, lumbar region (principal); M51.17 Intervertebral disc disorders with radiculopathy, lumbosacral region; M48.061 Spinal stenosis, lumbar region without neurogenic claudication; E88.2 Lipomatosis, not elsewhere classified
CPT/HCPCS: 72148